=== PATIENT | female | born 1935 | race Caucasian/White ===

== ENCOUNTER 2019-03-21 19:48 | Emergency (ER) | payer MEDICARE ==
--- OUTSIDE RECORDS SUMMARY | 2019-03-21 19:53 | XMS REPORT | Continuity of Care Document ---
:1935 External Reference #:[id number] Author Name Michaela Navarro Care Team Providers Name Role Phone Jay Isbell MD Primary Care Physician Unavailable Payers Date Identification Numbers Payment Provider Subscriber Policy Number: [id number] [facility] [employer] [address] PayID: [id number] [address] [address] [place] [address] Family History Date Family Member(s) Observation Comments General Diabetes General Stroke General Cancer Social History Type Date Description Comments Sex Unknown Lives With Spouse Occupation Unemployed ETOH Use Denies alcohol use Tobacco Use Start: Unknown Patient has never smoked Smoking Status Reviewed: 02/20/19 Patient has never smoked Exercise Type/Frequency Does not exercise Allergies, Adverse Reactions, Alerts Active Allergies Reaction Severity Comments Date Sulfa Drugs 02/20/2019 Dobutamine 02/20/2019 Medications Active Medications SIG Qnty Indications Ordering Provider Date Lantus 15 units daily Unknown 100Unit/ML Solution Humalog Unknown Glimepiride Unknown Amlodipine Besylate Unknown Lisinopril-Hydrochloroth Unknown iazide Vital Signs Date Vital Result Comment 02/20/2019 11:16am Height 65 inches 5'5" Weight 159.00 lb Heart Rate 88 /min BP Systolic 136 mmHg BP Diastolic 74 mmHg Respiratory Rate 22 /min Body Temperature 98.3 F Pain Level 2 BMI (Body Mass Index) 26.5 kg/m2 Plan of Treatment Future Appointment(s):03/25/2019 9:30 am - Davian Gayle M.D. at [facility]02/20/2019 - Davian Gayle M.D.[id number] Type 2 diabetes mellitus with foot ulcerNew Therapy:Rehab ReferralFollow up:4-5 weeks
--- NOTE | 2019-03-21 20:00 | UC ---
Lower Extremity/Ankle HPI - HPI Summary HPI Summary: 83 yo female presents with chronic right foot wound. She tells me that she is diabetic and has been dealing with a wound to her right foot since 1984. Most recently over the last 2 months, the wound was open and she was seeing the wound clinic, but was discharged because the wound was closed and back to baseline. She is scheduled to see her doctor on 03/25 for a recheck. Today she tells me that she has been walking around the house a lot in slippers that were rubbing just above the chronic wound. Tonight noticed a blister to the superior portion of the wound/callous. This area was also painful, but has since resolved since changing out of her slippers. She is here for evaluation of the blister. Denies fever or chills. - History of Current Complaint Stated Complaint: FOOT PAIN Time Seen by Provider: 03/21/19 20:00 Hx Obtained From: Patient Onset/Duration: Sudden Onset Severity Initially: Moderate Severity Currently: None Aggravating Factor(s): Standing, Ambulation Alleviating Factor(s): Rest - Allergies/Home Medications Allergies/Adverse Reactions: Allergies Allergy/AdvReac Type Severity Reaction Status Date / Time dobutamine Allergy Severe SEVERE Verified 03/21/19 20:05 PAIN, DISORIENTATION Sulfa (Sulfonamide Allergy Altered Verified 03/21/19 20:05 Antibiotics) Mental Status Home Medications: Home Medications Amlodipine Besylate [Amlodipine 2.5 mg tab] 03/21/19 [History] Glimepiride 03/21/19 [History] Insulin LISPRO* [HumaLOG*] PRN 03/21/19 [History] PMH/Surg Hx/FS Hx/Imm Hx Endocrine History: Diabetes Cardiovascular History: Hypertension - Surgical History Surgical History: Yes Surgery Procedure, Year, and Place: hysterectomy, appendectomy - Family History Known Family History: Positive: Unknown - Social History Occupation: Retired Lives: With Family Alcohol Use: None Substance Use Type: None Smoking Status (MU): Never Smoked Tobacco Review of Systems All Other Systems Reviewed And Are Negative: Yes Constitutional: Positive: Negative Skin: Positive: Other - Chronic wound right foot Respiratory: Positive: Negative Cardiovascular: Positive: Negative Neurovascular: Positive: Negative Neurological: Positive: Negative Psychological: Positive: Negative Physical Exam - Summary Physical Exam Summary: GENERAL: NAD. WDWN. No pain distress. SKIN: RIGHT FOOT: Medial aspect just inferior to 1st MTP there is a chronic callous that is thick and griffiths/yellow in color. NTTP. No open wound. On the lateral portion of this callous toward the 2nd MT there is a 1.0cm blister with clear appearing fluids within and faint surrounding erythema. NTTP. No warmth or drainage. No streaking. CHEST: No accessory muscle use. Breathing comfortably and in no distress. CV: Pulses intact PT and DP. Cap refill <2seconds NEURO: Alert. PSYCH: Age appropriate behavior. Triage Information Reviewed: Yes Vital Signs: Vital Signs: Temp Pulse Resp BP Pulse Ox 98.6 F 90 16 171/80 98 03/21/19 19:53 03/21/19 19:53 03/21/19 19:53 03/21/19 19:53 03/21/19 19:53 Vital Signs Reviewed: Yes Procedures - Incision and Drainage Right Foot Instrument(s): Needle - #22 Lower Extremity Course/Dx - Course Course Of Treatment: The procedure was explained to the pt and all questions were answered. A time out was performed, witnessed, and signed. The area was cleansed with an alcohol pad. A #22G needle was used to gaby the inferior aspect of the blister and clear with scant bloody thin liquid was expressed. Blister deflated. Site bandaged with a telfa dressing. Pt tolerated well. Advised to apply a dressing daily and apply her bactroban ointment she has at home. Keep f/u on sunday for a recheck or return to sooner if site develops redness, drainage, or pain. - Differential Dx/Diagnosis Provider Diagnosis: Blister of right foot Discharge - Sign-Out/Discharge Documenting (check all that apply): Patient Departure All imaging exams completed and their final reports reviewed: No Studies - Discharge Plan Condition: Stable Disposition: HOME Patient Education Materials: Chronic Wound Care (ED) Referrals: Jay Isbell MD [Primary Care Provider] - Additional Instructions: If you develop a fever, shortness of breath, chest pain, new or worsening symptoms - please call your PCP or go to the ED immediately. Your blood pressure was high at todays visit. Please see your primary provider within 4 weeks for recheck and re-evaluation. 1) Keep the area covered with a bandage daily until your appointment sunday for a recheck 2) Apply the bactroban cream as prescribed by your doctor - Billing Disposition and Condition Condition: STABLE Disposition: Home
[2019-03-21 20:04] VITALS: BP 171/80
== END 2019-03-21 20:45 | disposition home or self-care (01) ==
LOC: UCEAST 19:48
DX: S90.821A Blister (nonthermal), right foot, initial encounter (principal); X58.XXXA Exposure to other specified factors, initial encounter; Y92.9 Unspecified place or not applicable; E11.9 Type 2 diabetes mellitus without complications; I10 Essential (primary) hypertension; Z79.4 Long term (current) use of insulin; Z88.2 Allergy status to sulfonamides
CPT/HCPCS: 87070; 87077; 87205; 87640; 87641; 99211; G0463